=== PATIENT | female | born 1955 | race Caucasian/White ===

== ENCOUNTER → 2024-05-16 | Outpatient (CLI) | payer OTHER | END | disposition home or self-care (01) | LOC: LAB 13:56 → LAB SHORT 13:56 | DX: E07.9 Disorder of thyroid, unspecified (principal); R79.89 Other specified abnormal findings of blood chemistry | CPT/HCPCS: 36415; 84439 ==

== ENCOUNTER → 2025-06-14 | Outpatient (CLI) | payer OTHER ==
[2025-06-16 21:01] LABS: HSV SUBTYPE SOURCE Swab
== END ==
LOC: LAB 15:17 → LAB SHORT 15:17
PROVIDERS: Physician Assistant Medical
DX: B00.1 Herpesviral vesicular dermatitis (principal)
CPT/HCPCS: 87529

== ENCOUNTER → 2025-07-05 | Outpatient (CLI) | payer OTHER | LOC: LAB SHORT 12:39 → LAB 12:39 | DX: Z12.4 Encounter for screening for malignant neoplasm of cervix (principal) | CPT/HCPCS: 87624; G0145 ==